=== PATIENT | female | born 1955 | race Caucasian/White ===

== ENCOUNTER → 2016-09-07 | Day surgery (SDC) | payer OTHER ==
[~2016-09-07] MED LIST: ASCO500T2 PO; CALC-534 PO; CALC-77 PO; CHOL400T2 PO; COLE1TAB PO; DEXL60CA PO; ESOM20CA PO; HYDR-965 PO; IV RINGERS,LACTATED 1000ML 1,000 ML IV SCH; LEVO100T5 PO; LEVO137T2 PO; MULT-460 PO; OMEP20TA63 PO; PROPOFOL 0 ML IV ONE; PROPOFOL 20 ML IV ONE; SERT100T PO; UBID50TA PO
[2016-09-07 09:36] VITALS: BP 146/71
--- NOTE | 2016-09-07 21:01 | CONS ---
DATE OF CONSULTATION: 09/07/2016 REFERRING PHYSICIAN: SUSHMA Ivey HISTORY OF PRESENT ILLNESS: A 60-year-old female with past medical history significant for Soto's as well as hypothyroidism and diverticulosis, is seen in for surveillance exam of her Soto's. She has been on maintenance therapy with Nexium 20 mg daily. 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 No dysphagia, odynophagia, heartburn or additional constitutional symptoms are elicited, and she is otherwise without additional complaints. PAST MEDICAL HISTORY: Soto's, hypothyroidism, diverticulosis, migraines, depression. ALLERGIES: HYDROCODONE. MEDICATIONS: Include calcium, vitamin D3, Nexium, levothyroxine, multivitamin. SOCIAL HISTORY: She is nonsmoker, nondrinker. FAMILY HISTORY: Significant for coronary artery disease, CVAs, colorectal cancer in her father and an uncle. PAST SURGICAL HISTORY: Status post right shoulder and knee surgery and cholecystectomy. REVIEW OF SYSTEMS: Per records. PHYSICAL EXAMINATION: GENERAL: Reveals a well-nourished, well-developed female. Alert, conversant, in no acute distress. VITAL SIGNS: Temperature is 98, pulse 76, respirations 20. HEENT: Normocephalic and atraumatic head. Pupils and extraocular movements not tested. Sclerae anicteric. NECK: Supple. LUNGS: Clear. CARDIOVASCULAR: Reveals an S1, S2 without S3, S4 or appreciable murmur. GASTROINTESTINAL: Reveals soft abdomen, normal bowel sounds, no appreciable hepatosplenomegaly, with right upper quadrant cholecystectomy incision. EXTREMITIES: Reveals no cyanosis, clubbing or edema. IMPRESSION: Soto's surveillance exam is warranted at this time. Risks and benefits of the procedure including risk of perforation have been discussed. The patient is willing to proceed at this time. I thank Vika Hart for allowing us to consult and participate in this patient's care. TRISTAN SALGADO MD DR: SASKIA/shea JOB#: [id number] / [id number] VIKA Perez
--- NOTE | 2016-09-10 13:25 | PATHOLOGY ---
PATHOLOGY REPORT * * * * * * * * FINAL DIAGNOSIS: Esophageal biopsies, distal esophagus: - Segments of hyperplastic squamous esophageal mucosa and esophagogastric mucosa showing chronic inflammation, consistent with reflux esophagitis. COMMENT: Sections of the distal esophageal biopsy reveal segments of hyperplastic squamous esophageal mucosa and esophagogastric mucosa showing chronic inflammation. The findings are consistent with reflux esophagitis. There is no evidence of Soto's change, dysplasia or malignancy. (JPM:csd; d/t: 09/10/2016) REPORT ELECTRONICALLY SIGNED BY: Ivan Lozano M.D. DATE/TIME: 09/10/2016 13:24 * * * * * * * * GROSS PATHOLOGY: Received in formalin labeled "Maximo Crouch, distal esophageal biopsy, R/O Soto's," are four segments of singh soft tissue measuring 1.0 x 0.8 x 0.1 cm in aggregate dimensions and ranging from 0.3 to 0.5 cm in maximum dimension. The specimen is submitted entirely in cassette A1. (CAA; 09/07/2016) INITIAL CPT CODE(S): A; 34456 Professional services performed by [facility] [place] [address] Technical services performed by [facility] at [address] [place] [address]. SPECIMEN(S) RECEIVED: A.Distal esophageal biopsy CLINICAL HISTORY: History of Soto's, R/O Soto's PATIENT: MAXIMO CROUCH /AGE: 409/29/1955 (Age: 60) PATIENT #: [id number] ALT CASE #: SPECIMEN COLLECTION DATE: 09/07/2016 SPECIMEN RECEIVED DATE: 09/07/2016 [facility] - [address] [place] [address] - PHONE: [phone] * * * END OF REPORT * * *
== END | disposition home or self-care (01) ==
LOC: ENDOS 07:34
PROVIDERS: ATTEND Internal Medicine Gastroenterology
DX: K22.70 Barrett's esophagus without dysplasia (principal); M19.90 Unspecified osteoarthritis, unspecified site; E03.9 Hypothyroidism, unspecified; F32.9 Major depressive disorder, single episode, unspecified; Z87.39 Personal history of other diseases of the musculoskeletal system and connective tissue; Z90.49 Acquired absence of other specified parts of digestive tract
CPT/HCPCS: 43239; J2704

== ENCOUNTER → 2016-10-24 | Outpatient (CLI) | payer OTHER ==
[2016-09-07 09:36] VITALS: BP 146/71
[~2016-10-24] MED LIST changes: +GADOBUTROL 7.5 MMOL/7.5 ML VIAL IV ONE; -IV RINGERS,LACTATED 1000ML 1,000 ML IV SCH; -PROPOFOL 0 ML IV ONE; -PROPOFOL 20 ML IV ONE
--- NOTE | 2016-10-24 09:49 | KCIC ---
PROCEDURE MRI brain with and without contrast. HISTORY Migraine headaches. Acute visual disturbance with decreased level of consciousness. TECHNIQUE Sagittal T1, axial T1, axial T2, axial FLAIR, axial T2 gradient, diffusion imaging with ADC map, post-contrast axial, and post-contrast coronal sequences are provided. 7 milliliters of intravenous Gadavist was administered without complication. COMPARISON None. FINDINGS The ventricles and sulci are within normal limits for age. A few scattered FLAIR hyperintensities in the supratentorial white matter are nonspecific. Findings may be secondary to minimal small vessel ischemic disease. They could also be sequela of migraine headaches. There is no acute intracranial hemorrhage or extra-axial fluid collection. There is no mass effect or midline shift. There is no restricted diffusion to suggest an acute infarct. Cervicomedullary junction is unremarkable. Pituitary and suprasellar region are unremarkable. Intracranial flow voids are preserved. There is ethmoid and maxillary mucosal thickening. There is left sphenoid mucosal thickening. There is fluid in the optic sheaths, nonspecific, this can be a finding of elevated intracranial pressures. There is no pathologic enhancement. IMPRESSION 1. No acute intracranial findings. 2. Nonspecific FLAIR hyperintensities in the supratentorial white matter may be secondary to minimal small vessel ischemic disease or sequela of migraine headaches. Electronically signed by: Joby Harrington MD (October 24, 2016 09:48:34)
== END | disposition home or self-care (01) ==
LOC: KCIC MRI 07:42
PROVIDERS: ATTEND Nurse Practitioner Family
DX: G43.909 Migraine, unspecified, not intractable, without status migrainosus (principal)
CPT/HCPCS: 70553; A9585

== ENCOUNTER → 2017-07-10 | Outpatient (CLI) | payer OTHER | END | disposition home or self-care (01) | LOC: KCIC MRI 09:14 | DX: Z12.31 Encounter for screening mammogram for malignant neoplasm of breast (principal); Z13.820 Encounter for screening for osteoporosis; M48.061 Spinal stenosis, lumbar region without neurogenic claudication; M54.16 Radiculopathy, lumbar region; M85.80 Other specified disorders of bone density and structure, unspecified site; Z78.0 Asymptomatic menopausal state | CPT/HCPCS: 72148; 77063; 77067; 77080 ==

== ENCOUNTER → 2017-08-21 | Outpatient (CLI) | payer OTHER ==
[~2017-08-21] MED LIST changes: -ASCO500T2 PO; -CALC-534 PO; -CALC-77 PO; -CHOL400T2 PO; -COLE1TAB PO; -DEXL60CA PO; -ESOM20CA PO; -GADOBUTROL 7.5 MMOL/7.5 ML VIAL IV ONE; -HYDR-965 PO; +IOHEXOL 180 MG/ML 10 ML VIAL.; -LEVO100T5 PO; -LEVO137T2 PO; -MULT-460 PO; -OMEP20TA63 PO; -SERT100T PO; -UBID50TA PO; +methylPREDNISolone ACETATE 40 MG/ML VIAL.; +methylPREDNISolone ACETATE 80 MG/ML VIAL.
== END ==
LOC: PNCL 08:22
DX: M51.16 Intervertebral disc disorders with radiculopathy, lumbar region (principal); M48.061 Spinal stenosis, lumbar region without neurogenic claudication; M19.90 Unspecified osteoarthritis, unspecified site; K21.9 Gastro-esophageal reflux disease without esophagitis; E03.9 Hypothyroidism, unspecified; F32.9 Major depressive disorder, single episode, unspecified; F17.200 Nicotine dependence, unspecified, uncomplicated; Z90.49 Acquired absence of other specified parts of digestive tract; Z88.6 Allergy status to analgesic agent; Z98.890 Other specified postprocedural states
CPT/HCPCS: 62323; J1030; J1040; Q9965

== ENCOUNTER → 2017-09-04 | Outpatient (CLI) | payer OTHER | LOC: PNCL 08:07 | DX: M48.061 Spinal stenosis, lumbar region without neurogenic claudication (principal); M51.16 Intervertebral disc disorders with radiculopathy, lumbar region | CPT/HCPCS: 99212 ==